=== PATIENT | female | born 1975 | race Caucasian/White ===

== ENCOUNTER 2016-09-16 18:39 | Emergency (ER) | payer SELFPAY ==
[~2016-09-16 18:39] MED LIST: BACL10TA PO; NAPR-260 PO
== END 2016-09-16 22:22 | disposition left against medical advice (07) ==
LOC: E/R 18:39
DX: Z53.21 Procedure and treatment not carried out due to patient leaving prior to being seen by health care provider (principal)

== ENCOUNTER 2019-04-08 15:28 | Emergency (ER) | payer MEDICAID ==
[~2019-04-08] VITALS: Ht 165.1 cm; Wt 70.0 kg
[~2019-04-08 15:28] MED LIST changes: +ACET500C5 PO; -NAPR-260 PO; +NAPR-985 PO
[2019-04-08 15:53] VITALS: BP 126/66; PULSE 67; RESP 16; Ht 165.1 cm; Wt 70.0 kg
[2019-04-08] MEDS ORDERED: ACETAMINOPHEN 500 MG TAB PO STA (16:28)
[2019-04-08] MEDS ORDERED: KETOROLAC 30 MG INJ IM STA (16:28)
== END 2019-04-08 17:50 | disposition home or self-care (01) ==
LOC: FTE 15:28
DX: M54.42 Lumbago with sciatica, left side (principal)
CPT/HCPCS: 81003; 81025; 96372; J1885; Z7502; Z7610